=== PATIENT | female | born 1970 | race Asian ===

== ENCOUNTER 2018-03-29 08:44 | Emergency (ER) | payer OTHER ==
--- NOTE | 2018-03-29 09:20 | ED Physician Chart ---
ED Chief Complaint/HPI - Patient Information Date Seen:: 03/22/18 Time Seen:: 08:52 Chief Complaint:: puncture wound L index finger History of Present Illness:: puncture wound L index finger Allergies:: Allergies Allergy/AdvReac Type Severity Reaction Status Date / Time No Known Allergies Allergy Verified 03/29/18 08:52 Vitals:: Vital Signs - 8 hr 03/29/18 08:52 Temp 98.6 F HR 77 RR 16 BP 106/74 O2 Sat % 98 Historian:: Patient Review:: Nurse's Note Reviewed ED Review of Systems - Review of Systems General/Constitutional: No fever, No chills, No weight loss, No weakness, No diaphoresis, No edema, No loss of appetite Skin: Other Head: No headache, No light-headedness Eyes: No loss of vision, No pain, No diplopia ENT: No earache, No nasal drainage, No sore throat, No tinnitus Neck: No neck pain, No swelling, No thyromegaly, No stiffness, No mass noted Cardio Vascular: No chest pain, No palpitations, No PND, No orthopnea, No edema Pulmonary: No SOB, No cough, No sputum, No wheezing GI: No nausea, No vomiting, No diarrhea, No pain, No melena, No hematochezia, No constipation, No hematemesis G/U: No dysuria, No frequency, No hematuria Musculoskeletal: No bone or joint pain, No back pain, No muscle pain Endocrine: No polyuria, No polydipsia Psychiatric: No prior psych history, No depression, No anxiety, No suicidal ideation Hematopoietic: No bruising, No lymphadenopathy Allergic/Immuno: No urticaria, No angioedema Neurological: No syncope, No focal symptoms, No weakness, No paresthesia, No headache, No seizure, No dizziness, No confusion, No vertigo ED Past Medical History - Past Medical History Obtainable: Yes Past Medical History: No significant medical hx Family Medical History - Family Member Mother History Unknown: Yes ED Physical Exam - Physical Examination General/Constitutional: Awake, Well-developed, well-nourished, Alert, No distress, GCS 15, Non-toxic appearing, Ambulatory Head: Atraumatic Eyes: Lids, conjuctiva normal, PERRL, EOMI Skin: No rash, Well hydrated, No lymphadenopathy Other Skin comments:: puncture wound L index finger over volar aspect with a small area of bruising present. Unknown gauge (22 or 24 gauge).. 2 point discrimination intact. Full Flexion and extension. FDP and FDS intact. ENMT: External ears, nose nl, Nasal exam nl, Lips, teeth, gums nl Neck: Nontender, Full ROM w/o pain, No JVD, No nuchal rigidity, No bruit, No mass, No stridor Respiratory: Nl effort/Exclusion, Clear to Auscultation, No Wheeze/Rhonchi/Rales Cardio Vascular: RRR, No murmur, gallop, rubs, NL S1 S2 GI: No tenderness/rebounding/guarding, No organomegaly, No hernia, Normal BS's, Nondistended, No mass/bruits, No McBurney tenderness : No CVA tenderness Extremities: No tenderness or effusion, Full ROM, normal strength in all extremities, No edema, Normal digits & nails Neuro/Psych: Alert/oriented, DTR's symmetric, Normal sensory exam, Normal motor strength, Judgement/insight normal, Mood normal, Normal gait, No focal deficits Misc: Normal back, No paraspinal tenderness ED Assessment - Assessment General Assessment: patient had her blood drawn. she is stable. ED Septic Shock - . Is Septic Shock (SBP<90, OR Lactate>4 mmol\L) present?: No - <6hrs of presentation: Vital Signs: Vital Signs - 8 hr 03/29/18 08:52 Temp 98.6 F HR 77 RR 16 BP 106/74 O2 Sat % 98 ED Reassessment (Disposition) - Reassessment Reassessment Condition:: Improved - Diagnosis Diagnosis:: Left index finger puncture wound. - Aftercare/Follow up Instructions Medication Prescribed:: Keflex for 3 days. Given a bottle of betadine. Keep covered. Clean with betadine bid. - Patient Disposition Discharge/Transfer:: Home Condition at Disposition:: Stable, Improved
[2018-03-31 11:07] LABS: HEP B CORE AB TOTAL Negative (Negative); HEP B SURFACE AB QUANT >1000.0 mIU/mL (Immunity>9.9); HEP B SURFACE AG QL Negative (Negative)
== END 2018-03-29 09:25 | disposition home or self-care (01) ==
LOC: ER 08:44
DX: S61.231A Puncture wound without foreign body of left index finger without damage to nail, initial encounter (principal); W46.1XXA Contact with contaminated hypodermic needle, initial encounter; Y93.89 Activity, other specified; Y92.238 Other place in hospital as the place of occurrence of the external cause; Y99.0 Civilian activity done for income or pay
CPT/HCPCS: 36415-UA; 86703-TC; 86704-90; 86706-90; 86803-90; 87340-90; Z7502